=== PATIENT | female | born 1935 | race Caucasian/White ===

== ENCOUNTER 2017-08-18 15:51 | Observation (INO) | payer MEDICARE, BC ==
[2017-08-18 16:42] LABS: #Lymphocytes 0.8 thou/uL (1.20-3.40); #Monocytes 0.5 thou/uL (0.11-0.59); #Neutrophils 6.9 thou/uL (1.40-6.50); %Basophils 0.5 % (0.0-1.0); %Eosinophils 0.2 % (0.0-10.0); %Lymphocytes 9.2 % (21.0-51.0); %Neutrophils 84.1 % (42.0-75.0); Hemoglobin 15.5 g/dL (12.0-16.0); Mean Corpuscular HGB CONC 34.6 g/dL (32.0-36.0); Mean Corpuscular Hemoglobin 32.1 pg (27.0-31.0); Mean Corpuscular Volume 92.7 fl (81.0-99.0); Platelet Count 287 thou/uL (130-400); RBC Distribution Width 12.2 % (11.5-14.5); Red Blood Cell (RBC) Count 4.83 mill/uL (4.20-5.40); White Blood Cell (WBC) Count 8.2 thou/uL (4.8-10.8)
[2017-08-18 17:05] LABS: ALT (SGPT) 15 U/L (8-55); AST (SGOT) 17 U/L (5-34); Albumin 4.1 g/dL (3.4-4.8); Alkaline Phosphatase 111 U/L (40-150); Anion Gap 16 mmol/L (10-20); BUN (Urea Nitrogen) 9 mg/dL (9.8-20.1); Bilirubin, Total 0.8 mg/dL (0.2-1.2); Calc. Creatinine Clearance 0 mL/min (70-130); Carbon Dioxide 22 mmol/L (23-31); Chloride 103 mmol/L (98-107); Estimated GFR-MDRD 68; Globulin 3.2 g/dL (2.4-3.5); Glucose 157 mg/dL (83-110); Magnesium 1.8 mg/dL (1.6-2.6); Potassium 3.8 mmol/L (3.5-5.1); Protein, Total 7.3 g/dL (6.0-8.3); Sodium 137 mmol/L (136-145)
[2017-08-18 17:09] LABS: Troponin I Less than 0.010 ng/mL (< 0.028)
[2017-08-18] MEDS ORDERED: Acetaminophen 325 MG TAB PO PRN (17:55)
[2017-08-18] MEDS ORDERED: Bisacodyl 5 MG TAB PO PRN (17:55)
--- NOTE | 2017-08-18 18:11 | HP ---
PRIMARY CARE PROVIDER: Dr. Yamilka Obrien in [place], [place]. CHIEF COMPLAINT: Palpitations. HISTORY OF PRESENT ILLNESS: Ms. Ladd is a pleasant 81-year-old lady who was seen at [facility] on 08/18/2017 following transfer from emergency room at [place]. She reports that over the last couple of years, she has had on and off palpitations. She was diagnos ed with atrial fibrillation. She also has an implanted loop recorder. She reports that her main sym ptom is palpitations. She denies any lightheadedness or nausea with atrial fibrillation. Her episod es occurring frequently and usually last 2-3 hours. Today, she had an episode of palpitations while at [employer]. She reports that it was continuous and di d not stop for 2 or 3 hours. She denies any other associated symptoms. She went to the emergency ro om at [place]. There, she was found to be in atrial fibrillation with rapid ventricular response. She received Cardizem and was transferred to [facility] Emergency Room. Befor e she got here, she spontaneously converted to normal sinus rhythm. All other systems reviewed and found to be negative. PAST MEDICAL HISTORY: Hypertension, atrial fibrillation, hypothyroidism, dyslipidemia. 2D echocardi ogram on 10/16/2016, showing left ventricular ejection fraction estimated at 65%-70%, no regional wal l motion abnormalities and grade I diastolic dysfunction. PAST SURGICAL HISTORY: Hysterectomy, loop recorder implantation. FAMILY HISTORY: Diabetes mellitus, hypertension, and stroke in her mother. Myocardial infarction in her father, first myocardial infarction in his 50s. SOCIAL HISTORY: No history of tobacco use, alcohol use or recreational drug use. CODE STATUS: I discussed her code status. She is FULL CODE. 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 ALLERGIES: No known drug allergies. CURRENT MEDICATIONS: Aspirin 81 mg daily, atorvastatin 20 mg daily, lorazepam 1 mg 3 times a day, Sy nthroid 50 mcg daily, amlodipine/benazepril 10/20 mg daily, atenolol 50 mg daily, hydrochlorothiazide /losartan 25/100 mg daily, Zoloft 25 mg daily, potassium chloride 20 mEq daily. PHYSICAL EXAMINATION: GENERAL: Ms. Ladd is awake and alert, not in acute distress. VITAL SIGNS: Blood pressure is 142/66, pulse is 84. She is breathing at rate of 16, and saturating 93% on room air. She is afebrile. EYES: No scleral icterus. No conjunctival pallor. ENT: Moist mucosal membranes, no oropharyngeal erythema or exudates. NECK: Supple, nontender, normal range of movement. Trachea is midline. RESPIRATORY: Accessory muscles of breathing are not active. Chest wall movements are symmetric bila terally. LUNGS: Clear to auscultation without wheeze, rhonchi or crepitations. CARDIOVASCULAR: S1 and S2 are heard, regular. Peripheral pulses palpable. No carotid bruit, no per icardial rub. ABDOMEN: Soft, nontender, bowel sounds heard, no hepatomegaly, no splenomegaly. NEUROLOGIC: Cranial nerves II-XII intact. Deep tendon reflexes are 2+. MUSCULOSKELETAL: Power is 5/5 in all 4 extremities. LYMPHATIC: No cervical lymphadenopathy. SKIN: No rashes or subcutaneous nodules. PSYCHIATRIC: Normal mood, normal affect. The patient is oriented to person, place, and time. LABORATORY DATA: Ms. Ladd's labs and investigations were reviewed. I reviewed her electrocardiogr am done at [place], which shows atrial fibrillation with rapid ventricular response, no ST changes t o suggest an acute coronary syndrome. I also reviewed her chest x-ray, which does not show any pulmo nary infiltrates. She has an unremarkable CBC, normal sodium, normal potassium, normal creatinine, n ormal liver function tests and a normal troponin I at [facility]. ASSESSMENT AND PLAN: Ms. Ladd is a pleasant 81-year-old lady who was seen at [facility] on 08/18/2017. Her problem list includes: 1. Atrial fibrillation with rapid ventricular response: She presented in atrial fibrillation with r apid ventricular response at [place] [facility]. She is currently in normal sinus rhythm, after spontaneously converting to normal sinus rhythm. She is hemodynamically stable. She will be admitt ed to the hospital on observation status for telemetry monitoring overnight. The patient also wishes to see Cardiology Service here. She is being followed by nut picker at [place] as well. I will request Cardiology Service consultation here for their opinion in case anything needs to be done here or for patient to follow up with her nut picker at [place]. 2. Hypertension: Monitor vital signs and titrate antihypertensives as needed. 3. Hypothyroidism: We will continue Synthroid and check TSH. 4. Dyslipidemia: Continue statin. Many thanks for allowing me to participate in your patient's care. Please feel free to contact me wi th any questions or concerns. LEVEL OF RISK: High. LEVEL OF COMPLEXITY: High.
[2017-08-18 20:20] LABS: Troponin I Less than 0.010 ng/mL (< 0.028)
[2017-08-18] MEDS ORDERED: Lorazepam 1 MG TAB PO PRN (21:22)
[2017-08-18] MEDS ORDERED: Ondansetron HCl/PF 4 MG/2 ML Vial IVP PRN (21:27)
[2017-08-18] MEDS ORDERED: Ondansetron ODT 4 MG TAB SL PRN (21:27)
[2017-08-18] MEDS ORDERED: Amlodipine 5 mg/Benazepril 10 mg CAP PO SCH (21:30)
[2017-08-18] MEDS ORDERED: Atenolol 50 MG TAB PO SCH (21:30)
[2017-08-18] MEDS ORDERED: Atorvastatin Calcium 20 MG TAB PO SCH (21:30)
[2017-08-18 22:40] VITALS: BMI 31.6
[2017-08-18 23:21] LABS: Troponin I 0.017 ng/mL (< 0.028)
[2017-08-19 05:09] LABS: #Eosinphils 0.2 thou/uL (0.0-0.7); #Lymphocytes 1.3 thou/uL (1.20-3.40); #Monocytes 0.7 thou/uL (0.11-0.59); #Neutrophils 3.1 thou/uL (1.40-6.50); %Basophils 0.7 % (0.0-1.0); %Lymphocytes 24.8 % (21.0-51.0); %Monocytes 13.6 % (0.0-10.0); %Neutrophils 57.9 % (42.0-75.0); Hemoglobin 13.8 g/dL (12.0-16.0); Mean Corpuscular Hemoglobin 30.8 pg (27.0-31.0); Mean Corpuscular Volume 93.6 fl (81.0-99.0); Mean Platelet Volume 7.3 fL (7.4-10.4); Platelet Count 267 thou/uL (130-400); RBC Distribution Width 12.2 % (11.5-14.5); Red Blood Cell (RBC) Count 4.46 mill/uL (4.20-5.40); White Blood Cell (WBC) Count 5.3 thou/uL (4.8-10.8)
[2017-08-19 05:57] LABS: Anion Gap 10 mmol/L (10-20); BUN (Urea Nitrogen) 9 mg/dL (9.8-20.1); Calc. Creatinine Clearance 69 mL/min (70-130); Calcium 10.1 mg/dL (7.8-10.44); Carbon Dioxide 27 mmol/L (23-31); Chloride 105 mmol/L (98-107); Estimated GFR-MDRD 61; Glucose 109 mg/dL (83-110); Potassium 4.4 mmol/L (3.5-5.1); Sodium 138 mmol/L (136-145)
[2017-08-19] MEDS ORDERED: Levothyroxine Sodium 50 MCG TAB PO SCH (06:00)
[2017-08-19] MEDS ORDERED: Hydrochlorothiazide 25 MG TAB PO SCH (09:00)
[2017-08-19] MEDS ORDERED: Enoxaparin Sodium 40 MG/0.4 ML SYRINGE SC SCH (09:00)
[2017-08-19 11:24] VITALS: BP 138/64; TEMP 97.9
--- NOTE | 2017-08-19 12:45 | CON ---
DATE OF CONSULTATION: 08/19/2017 REASON FOR CONSULTATION: Atrial fibrillation, now sinus rhythm. PRIMARY CARE PROVIDER: Bryan Ac M.D. HISTORY OF PRESENT ILLNESS: Ms. Ladd is a very pleasant 81-year-old woman who has been seen and ev aluated by Dr. Timur Eisenberg while in [place]. 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 S he states she had palpitations for several hours. She presented to the emergency room where she was found to be in atrial fibrillation with RVR. She then spontaneously converted to sinus rhythm. She is currently asymptomatic. No chest pain, pressure or shortness of breath. Her main symptom has bee n palpitations. After interrogating her implantable loop recorder, she appeared to have 3 episodes noted in July. She also has this episode noted in August. Longest episode of atrial fibrillation was estimated to 10 viola rs. She has not been on anticoagulation therapy. PAST MEDICAL HISTORY: Hypertension, paroxysmal atrial fibrillation, hypothyroidism, hyperlipidemia. Echo dated 10/2016 with LVEF 65%-70%. FAMILY HISTORY: Diabetes mellitus, hypertension, CVA, NE. SOCIAL HISTORY: No current tobacco or alcohol use. ALLERGIES: None. CURRENT MEDICATIONS: Include aspirin, atorvastatin, lorazepam, Synthroid, amlodipine/benazepril, ate nolol, hydrochlorothiazide, losartan and potassium. REVIEW OF SYSTEMS: Ten-point review of systems is reviewed and as above, otherwise negative. PHYSICAL EXAMINATION: GENERAL: Patient is a pleasant female who is in no acute distress. The patient appears her stated a ge. VITAL SIGNS: Blood pressure 130/64, pulse 57, temperature 97.9. NEUROLOGIC: The patient is alert and oriented times 3 with no focal neurologic deficits. HEENT: Sclerae without icterus. Mouth has moist mucous membranes with normal pallor. NECK: No JVD. Carotid upstroke brisk. No bruits bilaterally. LUNGS: Clear to auscultation with unlabored respirations. BACK: No scoliosis or kyphosis. CARDIAC: Regular rate and rhythm with normal S1 and S2. No S3 or S4 noted. No significant rubs, mu rmurs, thrills, or gallops noted throughout the precordium. PMI is not displaced. There is no marcio ternal heave. ABDOMEN: Soft, nontender, nondistended. No peritoneal signs present. No hepatosplenomegaly. No ab normal striae. EXTREMITIES: 2+ femoral and 2+ dorsalis pedis pulses. No cyanosis, clubbing, or edema. SKIN: No gross abnormalities. PERTINENT LABS: Hemoglobin 13.8. Peak troponin 0.017. EKG shows atrial fibrillation, now sinus rhy thm. ILR interrogation as above. IMPRESSION: Paroxysmal atrial fibrillation. RECOMMENDATIONS: The patient's CHADS-VASc score is estimated to 3. I discussed the risks and benefi ts of anticoagulation therapy. We will start Eliquis 5 mg p.o. b.i.d. She is in agreement. We woul d also recommend Multaq at 400 mg subcutaneously b.i.d. She is also on atenolol. She has had an ech o done within the last year. At this point, it would be okay from my standpoint to discharge home wi th close outpatient followup within a week.
--- NOTE | 2017-08-19 13:42 | DIS ---
PRIMARY CARE PHYSICIAN: Dr. Yamilka Obrien in [place], [place] DATE OF ADMISSION: 08/18/2017 DATE OF DISCHARGE: 08/19/2017 ADMITTING DIAGNOSES: Atrial fibrillation with rapid ventricular response. CONSULTATIONS DURING THIS HOSPITALIZATION: Cardiology, Dr. Topete CONDITION OF PATIENT ON THE DAY OF DISCHARGE: Stable. I assessed Ms. Ladd on the day of discharge . She denies any chest pain or shortness of breath. Vital signs are stable. S1 and S2 are heard, r egular. Lungs are clear to auscultation bilaterally. DISCHARGE MEDICATIONS: Her aspirin was stopped. She has been started on apixaban 5 mg 2 times a day , and Multaq 400 mg 2 times a day. Otherwise, the rest of her preadmission home medications as dicta linda on my history and physical note from 08/18/2017 are being continued. HOSPITAL COURSE: Ms. Ladd is a pleasant 81-year-old lady who was admitted to [facility] on 08/18/2017 on observation status for atrial fibrillation with rapid ventricular respo nse. She converted to normal sinus rhythm prior to this admission. She was seen by Cardiology Servi ce. Her loop recorder was interrogated. She has been started on apixaban and Multaq and is being di scharged home in a stable condition. She is advised to follow up with Cardiology Service in a week. On the day of discharge, she has normal electrolytes, normal creatinine, unremarkable CBC and her TSH during this hospitalization was normal. Many thanks for allowing me to participate in your patient's care. Please feel free to contact me wi th any questions or concerns. DISCHARGE DESTINATION: Home.
[2017-08-19] MEDS ORDERED: Dronedarone HCl 400 MG TAB PO SCH (17:00)
[2017-08-19] MEDS ORDERED: Atorvastatin Calcium 20 MG TAB PO SCH (21:00)
[2017-08-19] MEDS ORDERED: Amlodipine 5 mg/Benazepril 10 mg CAP PO SCH (21:00)
[2017-08-19] MEDS ORDERED: Atenolol 50 MG TAB PO SCH (21:00)
[2017-08-19] MEDS ORDERED: Apixaban 5 MG TAB PO SCH (21:00)
== END 2017-08-19 14:06 | disposition home or self-care (01) ==
LOC: ERS 15:51 → 2SW 17:19
PROVIDERS: ADMIT Internal Medicine; ATTEND Internal Medicine
DX: I48.0 Paroxysmal atrial fibrillation (principal); I10 Essential (primary) hypertension; E03.9 Hypothyroidism, unspecified; E78.5 Hyperlipidemia, unspecified; Z79.899 Other long term (current) drug therapy; Z79.82 Long term (current) use of aspirin
CPT/HCPCS: 80048; 83735; 84484 ×2; 85025; 93005; 94760; 96372; 99285; G0378; 36415; 80053; 84443; J1650